=== PATIENT | female | born 1985 | race Caucasian/White ===

== ENCOUNTER 2017-06-03 16:53 | Inpatient (IN) | payer OTHER ==
[~2017-06-03] VITALS: Ht 165.1 cm; Wt 57.6 kg
[~2017-06-03 16:53] MED LIST: BENADRYL25 MG PO; CEFADROXIL500 MG PO; MEDROL8 MG PO
== END 2017-06-15 13:33 | disposition home or self-care (01) | DRG 354 ==
LOC: ER 16:53 → SURH 06-04 09:36
PROVIDERS: Surgery
PROC: 0WQF0ZZ Repair Abdominal Wall, Open Approach (ICD-10-PCS; 2017-06-05)
PROC: 0WJG0ZZ Inspection of Peritoneal Cavity, Open Approach (ICD-10-PCS; principal; 2017-06-05 07:00)
PROC: 3E0336Z Introduction of Nutritional Substance into Peripheral Vein, Percutaneous Approach (ICD-10-PCS; 2017-06-06)
DX: K42.0 Umbilical hernia with obstruction, without gangrene (principal); K56.0 Paralytic ileus; K91.89 Other postprocedural complications and disorders of digestive system; K30 Functional dyspepsia

== ENCOUNTER 2018-03-01 13:55 | Emergency (ER) | payer OTHER ==
[~2018-03-01] VITALS: Ht 165.1 cm; Wt 65.8 kg
== END 2018-03-01 18:55 | disposition home or self-care (01) ==
LOC: ER 13:55
DX: L08.89 Other specified local infections of the skin and subcutaneous tissue (principal)

== ENCOUNTER 2022-02-05 12:25 | Emergency (ER) | payer OTHER ==
[~2022-02-05] VITALS: Ht 165.1 cm; Wt 70.3 kg
== END 2022-02-05 17:28 | disposition home or self-care (01) ==
LOC: ER 12:25
DX: S89.91XA Unspecified injury of right lower leg, initial encounter (principal); W10.9XXA Fall (on) (from) unspecified stairs and steps, initial encounter; Y93.9 Activity, unspecified; Y92.9 Unspecified place or not applicable; M25.561 Pain in right knee

== ENCOUNTER 2022-07-31 09:07 | Emergency (ER) | payer OTHER ==
[~2022-07-31] VITALS: Ht 165.1 cm; Wt 70.3 kg
== END 2022-07-31 10:25 | disposition home or self-care (01) ==
LOC: ER 09:07
DX: S61.451A Open bite of right hand, initial encounter (principal); W55.01XA Bitten by cat, initial encounter; Y93.9 Activity, unspecified; Y92.9 Unspecified place or not applicable